=== PATIENT | female | born 1975 | race Caucasian/White ===

== ENCOUNTER 2016-12-24 13:53 | Emergency (ER) | payer MEDICAID ==
[~2016-12-24] VITALS: Ht 162.6 cm; Wt 93.6 kg
[2016-12-24 13:55] VITALS: TEMP 99.8
[2016-12-24] MEDS ORDERED: GLUCOPHAGE500 MG/TAB PO (14:04)
[2016-12-24] MEDS ORDERED: ALDACTONE50 MG PO (14:04)
[2016-12-24] MEDS ORDERED: TOPAMAX 25MG25 M1 PO (14:05)
[2016-12-24] MEDS ORDERED: CHERATUSSIN AC240 ML PO (14:07)
[2016-12-24] MEDS ORDERED: LEVAQUIN 5500 MG/TA1 PO (14:07)
[2016-12-24] MEDS ORDERED: COMBIRESP IH (14:08)
[2016-12-24] MEDS ORDERED: PREDNISONE20 MG PO (14:08)
[2016-12-24] MEDS ORDERED: OMNICEF 300MG300 MG PO (14:08)
[2016-12-24] MEDS ORDERED: PROAIR HFA0.09 MG/AC IH (14:08)
[2016-12-24 14:33] LABS: BASO % 0.5 % (0.0-2.0); EOS # 0.3 (0.0-0.7); EOS % 3.2 % (0-4.0); GRAN % 69.3 % (42.2-75.2); HEMOGLOBIN 14.5 g/dl (12.5-16.0); LYMPH # 1.6 (1.2-3.4); LYMPH % 18.8 % (20.0-51.0); MEAN CELL VOLUME 85 fl (80.0-100.0); MEAN CORPUSCULAR HEMOGLOBIN 30 pg (27.0-31.0); MEAN CORPUSCULAR HGB CONC 35 g/dl (33.0-37.0); MONO # 0.7 (0.1-0.6); PLATELET COUNT 219 K/mm3 (130-400); RED BLOOD COUNT 4.85 M/mm3 (4.10-5.30); WHITE BLOOD COUNT 8.6 K/mm3 (4.8-10.8)
[2016-12-24 14:48] LABS: ADJUSTED CALCIUM 8.6 mg/dL (8.4-10.2); ALBUMIN 4.5 gm/dL (3.5-5.0); BILIRUBIN,TOTAL 0.9 mg/dL (0.0-1.0); C-REACTIVE PROTEIN 3.4 mg/dL (0.0-0.9); CREATININE, serum 0.74 mg/dL (0.52-1.25); POTASSIUM 3.9 mmol/L (3.4-5.0); TOTAL PROTEIN 7.9 gm/dL (6.4-8.2)
[2016-12-24] MEDS ORDERED: ZOFRAN ODT4 MG PO (15:47)
[2016-12-24 16:13] VITALS: BP 131/73; PULSE 100
== END 2016-12-24 16:23 | disposition home or self-care (01) ==
LOC: COL.ER 13:53
PROVIDERS: Family Medicine
DX: J18.9 Pneumonia, unspecified organism (principal); E11.9 Type 2 diabetes mellitus without complications; R00.0 Tachycardia, unspecified; Z79.84 Long term (current) use of oral hypoglycemic drugs
CPT/HCPCS: J2930; J7030

== ENCOUNTER → 2018-06-08 | Outpatient (CLI) | payer MEDICAID ==
[~2018-06-08] MED LIST: ALDACTONE50 MG PO; CHERATUSSIN AC240 ML PO; COMBIRESP IH; GLUCOPHAGE500 MG/TAB PO; LEVAQUIN 5500 MG/TA1 PO; OMNICEF 300MG300 MG PO; PREDNISONE20 MG PO; PROAIR HFA0.09 MG/AC IH; TOPAMAX 25MG25 M1 PO; ZOFRAN ODT4 MG PO
== END ==
LOC: COL.RAD 08:00
DX: G44.229 Chronic tension-type headache, not intractable (principal)

== ENCOUNTER 2022-02-11 08:57 | Day surgery (SDC) | payer MEDICAID ==
[~2022-02-11] VITALS: Ht 162.6 cm; Wt 93.7 kg
[2022-02-11] MEDS ORDERED: VITAMINC1000TA PO (09:29)
[2022-02-11] MEDS ORDERED: THE MEDICINE S200 M2 PO (09:30)
[2022-02-11] MEDS ORDERED: ZYRTEC 10MG10 MG PO (09:30)
[2022-02-11] MEDS ORDERED: VITAMIN B122500 MCG SL (09:30)
[2022-02-11] MEDS ORDERED: ALDACTONE50 MG PO (09:31)
[2022-02-11] MEDS ORDERED: TROKEND100 PO (09:31)
[2022-02-11] MEDS ORDERED: PROTONIX 40MG T40 MG PO (09:31)
[2022-02-11] MEDS ORDERED: MOBIC15 MG PO (09:32)
[2022-02-11] MEDS ORDERED: VITAMIN D 50,1.25 MG PO (09:32)
[2022-02-11] MEDS ORDERED: MAG-G500 MG PO (09:33)
[2022-02-11] MEDS ORDERED: GLUCOPHAGE500 MG/TAB PO (09:33)
[2022-02-11] MEDS ORDERED: ATARAX 25MG25 MG/TAB PO (09:33)
[2022-02-11] MEDS ORDERED: MOTRIN 800800 MG/TAB PO (09:34)
[2022-02-11] MEDS ORDERED: PRAVACHOL80 MG PO (09:34)
[2022-02-11] MEDS ORDERED: MAXALT5 MG PO (09:34)
[2022-02-11] MEDS ORDERED: ACYCLOVIR (09:35)
[2022-02-11 10:25] VITALS: BP 125/73; PULSE 73; TEMP 97.3
--- NOTE | 2022-02-11 10:25 | NUR ---
PATIENT ARRIVES TO ROOM VIA CART. ASSIST X 2 TO CHAIR. VITAL SIGNS ARE STABLE. PATIENT DENIES ANY PAIN OR NAUSEA. PATIENT REQUESTS PEPSI AND TOAST. WILL CONTINUE TO MONITOR.
[2022-02-11 10:40] VITALS: BP 121/71; PULSE 71
--- NOTE | 2022-02-11 10:40 | NUR ---
PATIENT REPORTS SHE FEELS GREAT AND IS READY TO GET A REAL MEAL. VITAL SIGNS ARE STABLE. SHE DENIES ANY NAUSEA AFTER EATING TOAST. DOCTOR SPOKE WITH PATIENT AND PATIENT DENIES HAVING ANY FURTHER QUESTIONS. WILL CONTINUE TO MONITOR.
[2022-02-11 10:55] VITALS: BP 128/72; PULSE 72
--- NOTE | 2022-02-11 10:55 | NUR ---
PATIENT IS FEELING GOOD AND READY FOR DISCHARGE. VITAL SIGNS ARE STABLE. AT BEDSIDE. IV REMOVED AT 1100. PATIENT IS GETTING DRESSED AND WILL BE READY FOR DISCHARGE SHORTLY. SHE DENIES ANY FURTHER QUESTIONS.
[2022-02-11 11:49] VITALS: BP 119/82; PULSE 67; TEMP 97.3
== END 2022-02-11 11:07 | disposition home or self-care (01) ==
LOC: SDCO 08:57
DX: Z12.11 Encounter for screening for malignant neoplasm of colon (principal); D12.2 Benign neoplasm of ascending colon
CPT/HCPCS: J2704; J7030